=== PATIENT | male | born 1935 | race Caucasian/White ===

== ENCOUNTER 2016-08-15 15:00 | Emergency (ER) | payer MEDICARE, BC ==
--- NOTE | 2016-08-15 15:42 | EDM.PDOC ---
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 Onset: Today, Other ( as he was trying to work he noted that his left side was not working well. ) Duration: Hour(s):, Getting Worse, Other (pt had no difficulty with his speech or facial deviation. ) Location: Reports: Head Associated Symptoms: Reports: Weakness, Other (pt has weakness in the left arm and left leg. ) Denies Pain Score (Numeric/FACES): 0 - Related Data Allergies Allergy/AdvReac Type Severity Reaction Status Date / Time No Known Allergies Allergy Verified 08/15/16 15:05 Home Meds: Home Meds Hydrochlorothiazide 25 mg PO DAILY 08/15/16 [History] Metoprolol Succinate 1 tab PO DAILY 08/15/16 [History] Simvastatin [Zocor] 20 mg PO DAILY 08/15/16 [History] Past Medical History Cardiovascular History: Reports: High Cholesterol, Hypertension, [place], Stents Genitourinary History: Reports: Other (See Below) Other Genitourinary History: prostate infection - Infectious Disease History Infectious Disease History: Reports: Chicken Pox, Measles, Mumps - Past Surgical History HEENT Surgical History: Reports: Cataract Surgery Cardiovascular Surgical History: Reports: Coronary Artery Stent GI Surgical History: Reports: Colonoscopy Social & Family History - Tobacco Use Smoking Status *Q: Former Smoker Years of Tobacco use: 30 Packs/Tins Daily: 0.5 Used Tobacco, but Quit: Yes Month Tobacco Last Used: August Second Hand Smoke Exposure: No - Caffeine Use Caffeine Use: Reports: Coffee, Soda - Recreational Drug Use Recreational Drug Use: No ED ROS GENERAL - Review of Systems Review Of Systems: See Below Constitutional: Reports: No Symptoms HEENT: Reports: No Symptoms Respiratory: Reports: No Symptoms Cardiovascular: Reports: No Symptoms Endocrine: Reports: No Symptoms GI/Abdominal: Reports: No Symptoms : Reports: No Symptoms Musculoskeletal: Reports: Other ( weakness on the left leg and arm. ) Skin: Reports: No Symptoms ED EXAM, NEURO - Physical Exam Exam: See Below Text/Narrative:: pt arrived with weakness in his left arm and his left leg. This started early this am. Exam Limited By: No Limitations General Appearance: Alert, Mild Distress, Other (pupils are equal and reactive. ) Ears: Normal TMs Nose: Normal Inspection Throat/Mouth: Normal Inspection Head Exam: Atraumatic Neck: Other ( no evidence of sig carotid bruits) Respiratory/Chest: No Respiratory Distress Cardiovascular: Regular Rate, Rhythm GI/Abdominal: Soft, Non-Tender (Male) Exam: Deferred Rectal (Males) Exam: Deferred Neurological: Alert, Oriented x 3 Back Exam: Normal Inspection Extremities: Other (pt clearly has weakness in the left arm and left leg. ) Psychiatric: Normal Affect Course - Vital Signs Last Recorded V/S: Last Vital Signs Temp 37.2 C 08/15/16 15:18 Pulse 83 08/15/16 16:31 Resp 18 08/15/16 16:31 BP 139/94 H 08/15/16 16:31 Pulse Ox 94 L 08/15/16 16:31 - Orders/Labs/Meds Orders: Active Orders 24 hr Category Date Time Status EKG Documentation Completion [RC] ASDIRECTED Care 08/15/16 15:23 Active Chest 1V Frontal [CR] Stat Exams 08/15/16 15:34 Taken Head wo Cont [CT] Stat Exams 08/15/16 15:33 Taken CULTURE URINE [RM] Stat Lab 08/15/16 16:36 Uncollected Sodium Chloride 0.9% [Saline Flush] Med 08/15/16 16:31 Ordered 10 ml FLUSH ASDIRECTED PRN Saline Lock Insert [OM.PC] Routine Oth 08/15/16 16:31 Ordered EKG 12 Lead [EK] Routine Ther 08/15/16 15:23 Ordered Medication Orders Sodium Chloride (Saline Flush) 10 ml FLUSH ASDIRECTED PRN PRN Reason: Keep Vein Open Labs: Laboratory Tests 08/15/16 08/15/16 08/15/16 Range/Units 15:30 15:30 15:30 WBC 11.3 H (4.5-11.0) K/uL RBC 5.74 (4.30-5.90) M/uL Hgb 16.1 H (12.0-15.0) g/dL Hct 45.8 (40.0-54.0) % MCV 80 (80-98) fL MCH 28 (27-31) pg MCHC 35 (32-36) % Plt Count 239 (150-400) K/uL Neut % (Auto) 74 H (36-66) % Lymph % (Auto) 16 L (24-44) % [place] % (Auto) 8 H (2-6) % Eos % (Auto) 1 L (2-4) % Baso % (Auto) 0 (0-1) % Sodium 143 (140-148) mmol/L Potassium 3.2 L (3.6-5.2) mmol/L Chloride 104 (100-108) mmol/L Carbon Dioxide 26 (21-32) mmol/L Anion Gap 16.2 H (5.0-14.0) mmol/L BUN 23 H (7-18) mg/dL Creatinine 1.1 (0.8-1.3) mg/dL Est Cr Clr Drug Dosing 48.41 mL/min Estimated GFR (MDRD) > 60 (>60) Glucose 119 H (74-106) mg/dL Calcium 8.8 (8.5-10.1) mg/dL Total Bilirubin 0.6 (0.2-1.0) mg/dL AST 10 L (15-37) U/L ALT 20 (12-78) U/L Alkaline Phosphatase 63 (46-116) U/L Troponin I < 0.017 (0.000-0.056) ng/mL Total Protein 8.4 H (6.4-8.2) g/dL Albumin 4.0 (3.4-5.0) g/dL Globulin 4.4 H (2.3-3.5) g/dL Albumin/Globulin Ratio 0.9 L (1.2-2.2) Urine Color Urine Appearance Urine pH (4.5-8.0) Ur Specific [place] (1.008-1.030) Urine Protein (NEGATIVE) mg/dL Urine Glucose (UA) (NEGATIVE) mg/dL Urine Ketones (NEGATIVE) mg/dL Urine Occult Blood (NEGATIVE) Urine Nitrite (NEGAITVE) Urine Bilirubin (NEGATIVE) Urine Urobilinogen (NORMAL) mg/dL Ur Leukocyte Esterase (NEGATIVE) Urine RBC (0-5) Urine WBC (0-5) Ur Epithelial Cells Amorphous Sediment Urine Bacteria Urine Mucus 08/15/16 Range/Units 15:47 WBC (4.5-11.0) K/uL RBC (4.30-5.90) M/uL Hgb (12.0-15.0) g/dL Hct (40.0-54.0) % MCV (80-98) fL MCH (27-31) pg MCHC (32-36) % Plt Count (150-400) K/uL Neut % (Auto) (36-66) % Lymph % (Auto) (24-44) % [place] % (Auto) (2-6) % Eos % (Auto) (2-4) % Baso % (Auto) (0-1) % Sodium (140-148) mmol/L Potassium (3.6-5.2) mmol/L Chloride (100-108) mmol/L Carbon Dioxide (21-32) mmol/L Anion Gap (5.0-14.0) mmol/L BUN (7-18) mg/dL Creatinine (0.8-1.3) mg/dL Est Cr Clr Drug Dosing mL/min Estimated GFR (MDRD) (>60) Glucose (74-106) mg/dL Calcium (8.5-10.1) mg/dL Total Bilirubin (0.2-1.0) mg/dL AST (15-37) U/L ALT (12-78) U/L Alkaline Phosphatase (46-116) U/L Troponin I (0.000-0.056) ng/mL Total Protein (6.4-8.2) g/dL Albumin (3.4-5.0) g/dL Globulin (2.3-3.5) g/dL Albumin/Globulin Ratio (1.2-2.2) Urine Color Yellow Urine Appearance Turbid Urine pH 6.5 (4.5-8.0) Ur Specific [place] 1.015 (1.008-1.030) Urine Protein 100 H (NEGATIVE) mg/dL Urine Glucose (UA) Normal (NEGATIVE) mg/dL Urine Ketones 15 H (NEGATIVE) mg/dL Urine Occult Blood Large (NEGATIVE) Urine Nitrite Negative (NEGAITVE) Urine Bilirubin Negative (NEGATIVE) Urine Urobilinogen Normal (NORMAL) mg/dL Ur Leukocyte Esterase Large (NEGATIVE) Urine RBC 75-100 H (0-5) Urine WBC 75-100 H (0-5) Ur Epithelial Cells Rare Amorphous Sediment Not seen Urine Bacteria Many Urine Mucus Not seen Meds: Medications Generic Name Dose Route Start Last Admin Trade Name Kerline PRN Reason Stop Dose Admin Sodium Chloride 10 ml 08/15/16 16:31 Saline Flush FLUSH ASDIRECTED PRN Keep Vein Open - Re-Assessments/Exams Free Text/Narrative Re-Assessment/Exam: 08/15/16 16:46 urine looks infected. He does not have a fever. His wbc is 11,000. His ekg looks good. The cat scan of the head shows no acute findings. Departure - Departure Time of Disposition: 16:48 Disposition: Home, Self-Care 01 Condition: fair Clinical Impression: Embolic cerebral infarction, UTI (urinary tract infection) - Discharge Information Forms: ED Department Discharge Care Plan Goals: transfer by ambulance to [facility]. - My Orders Last 24 Hours: My Active Orders 08/15/16 15:23 EKG Documentation Completion [RC] ASDIRECTED EKG 12 Lead [EK] Routine 08/15/16 15:33 Head wo Cont [CT] Stat 08/15/16 15:34 Chest 1V Frontal [CR] Stat 08/15/16 16:31 Sodium Chloride 0.9% [Saline Flush] 10 ml FLUSH ASDIRECTED PRN Saline Lock Insert [OM.PC] Routine 08/15/16 16:36 CULTURE URINE [RM] Stat - Assessment/Plan Last 24 Hours: My Active Orders 08/15/16 15:23 EKG Documentation Completion [RC] ASDIRECTED EKG 12 Lead [EK] Routine 08/15/16 15:33 Head wo Cont [CT] Stat 08/15/16 15:34 Chest 1V Frontal [CR] Stat 08/15/16 16:31 Sodium Chloride 0.9% [Saline Flush] 10 ml FLUSH ASDIRECTED PRN Saline Lock Insert [OM.PC] Routine 08/15/16 16:36 CULTURE URINE [RM] Stat
[2016-08-15] MEDS ORDERED: Sodium Chloride 0.9% 10 ML Syringe FLUSH PRN (16:31)
[2016-08-15] MEDS ORDERED: Levofloxacin/Dextrose 5%-Water 500 MG in Premix Bag 1 BAG IV ONE (16:41)
[2016-08-15 16:59] VITALS: BP 121/79
--- NOTE | 2016-08-16 08:08 | CR ---
Chest 1V Frontal HISTORY: No Clinical Info FINDINGS: Heart size within normal limits. Pulmonary vasculature within normal limits. No evidence f or focal consolidation or cardiopulmonary process. IMPRESSION: No radiographic evidence for acute cardiopulmonary process.
== END 2016-08-15 17:50 ==
LOC: JP.ED 15:00
DX: I63.40 Cerebral infarction due to embolism of unspecified cerebral artery (principal); N39.0 Urinary tract infection, site not specified; I25.2 Old myocardial infarction; I10 Essential (primary) hypertension; E78.00 Pure hypercholesterolemia, unspecified; Z95.5 Presence of coronary angioplasty implant and graft; Z98.49 Cataract extraction status, unspecified eye; Z87.891 Personal history of nicotine dependence
CPT/HCPCS: 36415; 70450; 71010; 80053; 81001; 84484; 85025; 87086; 93005; 96365; 99285; J1956; 93010

== ENCOUNTER 2019-12-29 09:14 | Emergency (ER) | payer MEDICARE, BC ==
[2019-12-29 09:35] VITALS: BP 134/79; PULSE 93
--- NOTE | 2019-12-29 09:55 | EDM.PDOC ---
ED HPI GENERAL MEDICAL PROBLEM - General Chief Complaint: General Stated Complaint: general weakness Time Seen by Provider: 12/29/19 09:34 Source of Information: Reports: Patient, Family, RN Notes Reviewed History Limitations: Reports: No Limitations - History of Present Illness INITIAL COMMENTS - FREE TEXT/NARRATIVE: 84-year-old gentleman presents emergency department today complaint of difficulty with urination, he does have a history of prostatitis which he has had a couple of times he states he feels like he has to urinate but only gets a few dribbles out BladderScan by nursing staff reveals approximately 200 cc in his urine he has not had any fevers he has a known prostate enlargement - Related Data Allergies Allergy/AdvReac Type Severity Reaction Status Date / Time No Known Allergies Allergy Verified 08/15/16 15:05 Home Meds: Home Meds Hydrochlorothiazide 25 mg PO DAILY 08/15/16 [History] Metoprolol Succinate 100 mg PO DAILY 08/15/16 [History] Aspirin 325 mg PO DAILY 12/29/19 [History] Clopidogrel [Plavix] 75 mg PO DAILY 12/29/19 [History] Sulfamethoxazole/Trimethoprim [Bactrim Ds Tablet] 1 each PO BID #56 tablet 12/29/19 [Rx] Tamsulosin [Tamsulosin 24 Hr] 0.4 mg PO DAILY #30 cap.er 12/29/19 [Rx] atorvaSTATin [Lipitor] 40 mg PO DAILY 12/29/19 [History] Past Medical History Cardiovascular History: Reports: CAD, High Cholesterol, Hypertension, [place], Stents Genitourinary History: Reports: BPH, Other (See Below) Other Genitourinary History: Recurrent prostatitis - Infectious Disease History Infectious Disease History: Reports: Chicken Pox, Measles, Mumps - Past Surgical History HEENT Surgical History: Reports: Cataract Surgery Cardiovascular Surgical History: Reports: Coronary Artery Stent GI Surgical History: Reports: Colonoscopy, Hernia, Abdominal Social & Family History - Tobacco Use Smoking Status *Q: Never Smoker - Caffeine Use Caffeine Use: Reports: Coffee - Recreational Drug Use Recreational Drug Use: No ED ROS GENERAL - Review of Systems Review Of Systems: See Below Constitutional: Reports: No Symptoms Respiratory: Reports: No Symptoms Cardiovascular: Reports: No Symptoms GI/Abdominal: Reports: No Symptoms : Reports: Urinary Retention, Other (Fullness in his perineal area) ED EXAM, GENERAL - Physical Exam Exam: See Below Exam Limited By: No Limitations General Appearance: Alert, WD/WN, No Apparent Distress Respiratory/Chest: No Respiratory Distress Rectal (Males) Exam: BPH, Tenderness. No: Prostate Normal Course - Vital Signs Last Recorded V/S: Last Vital Signs Temp 96.8 F L 12/29/19 09:47 Pulse 93 12/29/19 09:47 Resp 20 12/29/19 09:47 BP 134/79 12/29/19 09:47 Pulse Ox 92 L 12/29/19 09:47 Departure - Departure Time of Disposition: 09:56 Disposition: Home, Self-Care 01 Condition: Fair Clinical Impression: Prostatitis Qualifiers: Prostatitis type: acute Qualified Code(s): N41.0 - Acute prostatitis - Discharge Information Instructions: Prostatitis, [id number] Referrals: Uli Gonzalez MD [Primary Care Provider] - Additional Instructions: Take full course of antibiotics this will be 28 days long, try the Flomax once a day at night to see if this helps with your urination and increasing the flow, follow-up with your primary care in the next 2 to 3 weeks for reevaluation return to the emergency department if not better Sepsis Event Note (ED) - Evaluation Sepsis Screening Result: No Definite Risk - Focused Exam Vital Signs: Vital Signs Temp Pulse Resp BP Pulse Ox 12/29/19 09:47 96.8 F L 93 20 134/79 92 L 12/29/19 09:27 96.8 F L 93 20 134/79 92 L - Assessment/Plan Plan: Assessment Acuity = acute Site and laterality = prostatitis complicated gentleman with enlarged prostate Etiology = probably secondary to infection bacterial cause Manifestations = urinary retention Location of injury = Home Lab values = urinalysis and culture are pending Plan Elected to treat empirically Bactrim DS 1 tab p.o. twice daily x20 days also Flomax 1 tablet at night for 30 days follow-up primary care in 10 to 15 days if not better This note was dictated using [employer] voice recognition software please call with any questions on syntax or grammar.
== END 2019-12-29 10:23 | disposition home or self-care (01) ==
LOC: JP.ED 09:14
DX: N41.0 Acute prostatitis (principal); I10 Essential (primary) hypertension; I25.2 Old myocardial infarction; I25.10 Atherosclerotic heart disease of native coronary artery without angina pectoris; E78.00 Pure hypercholesterolemia, unspecified; N40.0 Benign prostatic hyperplasia without lower urinary tract symptoms; Z95.5 Presence of coronary angioplasty implant and graft; Z79.82 Long term (current) use of aspirin; Z79.02 Long term (current) use of antithrombotics/antiplatelets; Z79.899 Other long term (current) drug therapy
CPT/HCPCS: 81001; 87086; 99283

== ENCOUNTER 2020-01-06 15:08 | Emergency (ER) | payer MEDICARE, BC ==
--- NOTE | 2020-01-06 17:22 | EDM.PDOC ---
ED HPI GENERAL MEDICAL PROBLEM - General Chief Complaint: General Stated Complaint: PAIN IN BOTH FEET Time Seen by Provider: 01/06/20 17:15 Source of Information: Reports: Patient, Family, Old Records, RN, RN Notes Reviewed History Limitations: Reports: No Limitations - History of Present Illness INITIAL COMMENTS - FREE TEXT/NARRATIVE: Pt here again with son for continuance of burning and stabbing pain in soles of BL feet. 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 Old records indicate A1C 6.8. Topical pain patches were given to try to see if that helps. Did ot. Pt is miserable and pain is relentless. Kidney function is elevated so alternative medications will be explored. Duration: Chronic, Constant, Getting Worse Location: Reports: Lower Extremity, Left, Lower Extremity, Right Quality: Reports: Sharp Feet Pain Score (Numeric/FACES): 8 - Related Data Allergies Allergy/AdvReac Type Severity Reaction Status Date / Time No Known Allergies Allergy Verified 01/06/20 16:38 Home Meds: Home Meds Hydrochlorothiazide 25 mg PO DAILY 08/15/16 [History] Metoprolol Succinate 100 mg PO DAILY 08/15/16 [History] Aspirin 325 mg PO DAILY 12/29/19 [History] Clopidogrel [Plavix] 75 mg PO DAILY 12/29/19 [History] Sulfamethoxazole/Trimethoprim [Bactrim Ds Tablet] 1 each PO BID #56 tablet 12/29/19 [Rx] Tamsulosin [Tamsulosin 24 Hr] 0.4 mg PO DAILY #30 cap.er 12/29/19 [Rx] atorvaSTATin [Lipitor] 40 mg PO DAILY 12/29/19 [History] Past Medical History Cardiovascular History: Reports: CAD, High Cholesterol, Hypertension, [place], Stents Genitourinary History: Reports: BPH, Other (See Below) Other Genitourinary History: Recurrent prostatitis - Infectious Disease History Infectious Disease History: Reports: Chicken Pox, Measles, Mumps - Past Surgical History HEENT Surgical History: Reports: Cataract Surgery Cardiovascular Surgical History: Reports: Coronary Artery Stent GI Surgical History: Reports: Colonoscopy, Hernia, Abdominal Social & Family History - Tobacco Use Smoking Status *Q: Never Smoker - Caffeine Use Caffeine Use: Reports: None - Recreational Drug Use Recreational Drug Use: No ED ROS GENERAL - Review of Systems Review Of Systems: See Below Constitutional: Reports: No Symptoms HEENT: Reports: No Symptoms Respiratory: Reports: No Symptoms Cardiovascular: Reports: No Symptoms Endocrine: Reports: No Symptoms GI/Abdominal: Reports: No Symptoms : Reports: Frequency, Urgency (On Bactrim DS ) Musculoskeletal: Reports: Other (BL soles of feet neuropathy) Skin: Reports: No Symptoms Neurological: Reports: No Symptoms Psychiatric: Reports: No Symptoms Hematologic/Lymphatic: Reports: No Symptoms Immunologic: Reports: No Symptoms ED EXAM, GENERAL - Physical Exam Exam: See Below Exam Limited By: No Limitations General Appearance: Alert, WD/WN, Mild Distress Head: Normocephalic Respiratory/Chest: Lungs Clear, Normal Breath Sounds Cardiovascular: Regular Rate, Rhythm (Male) Exam: Deferred Rectal (Males) Exam: Deferred Extremities: Other (Stabbing/burning pain BL soles of feet) Psychiatric: Normal Affect, Normal Mood Skin Exam: Warm, Dry, Intact, Normal Color, No Rash Course - Vital Signs Last Recorded V/S: Last Vital Signs Temp 36.9 C 01/06/20 16:37 Pulse 76 01/06/20 17:22 Resp 16 01/06/20 16:37 BP 110/66 01/06/20 17:22 Pulse Ox 95 01/06/20 16:37 - Orders/Labs/Meds Meds: Medications Discontinued Medications Generic Name Dose Route Start Last Admin Trade Name Kerline PRN Reason Stop Dose Admin Hydromorphone HCl 0.5 mg 01/06/20 17:23 Dilaudid IM 01/06/20 17:24 ONETIME ONE Departure - Departure Time of Disposition: 17:38 Disposition: Home, Self-Care 01 Condition: Good Clinical Impression: Neuropathy - Discharge Information *PRESCRIPTION DRUG MONITORING PROGRAM REVIEWED*: Not Applicable *COPY OF PRESCRIPTION DRUG MONITORING REPORT IN PATIENT JET: Not Applicable Instructions: Neuropathic Pain, Peripheral Neuropathy Referrals: Uli Gonzalez MD [Primary Care Provider] - Forms: ED Department Discharge Additional Instructions: Please take the new medication as prescribed. See your doctor in 7-10 days to follow up regarding continuing the Gabapentin or increasing the dose. Should your pain continue or increase, please come back to see us in the ER or call your provider for follow up. Sepsis Event Note (ED) - Evaluation Sepsis Screening Result: No Definite Risk - Focused Exam Vital Signs: Vital Signs Temp Pulse Resp BP Pulse Ox 01/06/20 17:22 76 110/66 01/06/20 16:37 36.9 C 80 16 130/86 95 01/06/20 16:26 36.9 C 80 16 130/86 95 - Problem List Review Problem List Initiated/Reviewed/Updated: Yes - Assessment/Plan Plan: Please take the new medication as prescribed. See your doctor in 7-10 days to follow up regarding continuing the Gabapentin or increasing the dose. Should your pain continue or increase, please come back to see us in the ER or call your provider for follow up.
[2020-01-06 17:23] VITALS: BP 110/66; PULSE 76
[2020-01-06] MEDS ORDERED: HYDROmorphone 0.5 MG/0.5 ML Syringe IM ONE (17:23)
== END 2020-01-06 18:13 | disposition home or self-care (01) ==
LOC: JP.ED 15:08
DX: G62.9 Polyneuropathy, unspecified (principal); I25.10 Atherosclerotic heart disease of native coronary artery without angina pectoris; E78.00 Pure hypercholesterolemia, unspecified; I10 Essential (primary) hypertension; I25.2 Old myocardial infarction; Z95.5 Presence of coronary angioplasty implant and graft; N40.0 Benign prostatic hyperplasia without lower urinary tract symptoms; Z79.02 Long term (current) use of antithrombotics/antiplatelets; Z79.899 Other long term (current) drug therapy; Z79.82 Long term (current) use of aspirin
CPT/HCPCS: 96372; 99283; J1170

== ENCOUNTER 2021-03-08 06:10 | Emergency (ER) | payer MEDICARE, BC ==
[2021-03-08] MEDS ORDERED: Sodium Chloride 0.9% 10 ML Syringe FLUSH PRN ×2 (06:14)
[2021-03-08] MEDS ORDERED: Aspirin 81 MG Tab.Chew PO ONE (06:16)
[2021-03-08 06:17] VITALS: BP 118/65; PULSE 95
--- NOTE | 2021-03-08 06:22 | EDM.PDOC ---
<OfficerArden - Last Filed: 03/08/21 06:34> ED HPI GENERAL MEDICAL PROBLEM - General Stated Complaint: [facility] Time Seen by Provider: 03/08/21 06:13 Source of Information: Reports: Patient, RN Notes Reviewed History Limitations: Reports: No Limitations - History of Present Illness INITIAL COMMENTS - FREE TEXT/NARRATIVE: 85-year-old gentleman presents emergency department with a complaint of right leg weakness, ambulance crew arrived found he could not move his right leg he could stand on his left and drag his right leg however by the time he got to the cot in the ambulance all his symptoms had resolved. He does have a history of CVA in the past, he denies any headache nausea vomiting shortness of breath or chest pain - Related Data Allergies Allergy/AdvReac Type Severity Reaction Status Date / Time No Known Allergies Allergy Verified 03/08/21 06:19 Home Meds: Home Meds Hydrochlorothiazide 25 mg PO DAILY 08/15/16 [History] Metoprolol Succinate 100 mg PO DAILY 08/15/16 [History] Aspirin 325 mg PO DAILY 12/29/19 [History] Clopidogrel [Plavix] 75 mg PO DAILY 12/29/19 [History] Sulfamethoxazole/Trimethoprim [Bactrim Ds Tablet] 1 each PO BID #56 tablet 12/29/19 [Rx] Tamsulosin [Tamsulosin 24 Hr] 0.4 mg PO DAILY #30 cap.er 12/29/19 [Rx] atorvaSTATin [Lipitor] 40 mg PO DAILY 12/29/19 [History] Past Medical History Cardiovascular History: Reports: CAD, High Cholesterol, Hypertension, [place], Stents Genitourinary History: Reports: BPH, Other (See Below) Other Genitourinary History: Recurrent prostatitis Neurological History: Reports: CVA (No deficits) - Infectious Disease History Infectious Disease History: Reports: Chicken Pox, Measles, Mumps - Past Surgical History HEENT Surgical History: Reports: Cataract Surgery Cardiovascular Surgical History: Reports: Coronary Artery Stent GI Surgical History: Reports: Colonoscopy, Hernia, Abdominal Social & Family History - Caffeine Use Caffeine Use: Reports: None ED ROS GENERAL - Review of Systems Review Of Systems: See Below Constitutional: Reports: No Symptoms HEENT: Reports: No Symptoms Respiratory: Reports: No Symptoms Cardiovascular: Reports: No Symptoms GI/Abdominal: Reports: No Symptoms Neurological: Reports: Difficulty Walking, Weakness ED EXAM, NEURO - Physical Exam Exam: See Below Exam Limited By: No Limitations General Appearance: Alert, WD/WN, No Apparent Distress Eye Exam: Bilateral Eye: Normal Inspection, PERRL Respiratory/Chest: No Respiratory Distress, Lungs Clear, Normal Breath Sounds, No Accessory Muscle Use, Chest Non-Tender Cardiovascular: Regular Rate, Rhythm, No Murmur GI/Abdominal: Soft, Non-Tender Neurological: Alert, Normal Mood/Affect, Normal Dorsiflexion, CN II-XII Intact, No Motor/Sensory Deficits, Oriented x 3 #1 Interpretation EKG Date: 03/08/21 Time: 06:35 Rhythm: NSR [place]: Normal P-Wave: Present QRS: Normal ST-T: Normal QT: Normal Departure - Departure Disposition: Home, Self-Care 01 Clinical Impression: TIA (transient ischemic attack) Leg weakness Qualifiers: Laterality: right Qualified Code(s): R29.898 - Other symptoms and signs involving the musculoskeletal system - Discharge Information Instructions: Transient Ischemic Attack, [id number] Referrals: PCP,Unknown [Primary Care Provider] - Forms: ED Department Discharge Care Plan Goals: Continue your current medications, activity as tolerated and return anytime if symptoms recur and are persistent or you develop other concerns. <Hamilton Rodriguez - Last Filed: 03/08/21 13:17> ED HPI GENERAL MEDICAL PROBLEM - History of Present Illness INITIAL COMMENTS - FREE TEXT/NARRATIVE: Letter Course - Vital Signs Last Recorded V/S: Last Vital Signs Temp 99.0 F 03/08/21 06:16 Pulse 95 03/08/21 06:16 Resp 32 H 03/08/21 06:16 BP 118/65 03/08/21 06:16 Pulse Ox 91 L 03/08/21 06:16 - Orders/Labs/Meds Orders: Active Orders 24 hr Category Date Time Status Peripheral IV Insertion Adult [OM.PC] Urgent Oth 03/08/21 06:14 Ordered EKG 12 Lead [EK] Stat Ther 03/08/21 06:14 Ordered Labs: Laboratory Tests 03/08/21 03/08/21 03/08/21 Range/Units 06:15 06:15 06:15 WBC 14.6 H (4.5-11.0) K/uL RBC 5.13 (4.30-5.90) M/uL Hgb 13.8 D (12.0-15.0) g/dL Hct 40.3 (40.0-54.0) % MCV 79 L (80-98) fL MCH 27 (27-31) pg MCHC 34 (32-36) % Plt Count 199 (150-400) K/uL Neut % (Auto) 82.4 H (36-66) % Lymph % (Auto) 7.6 L (24-44) % [place] % (Auto) 9.8 H (2-6) % Eos % (Auto) 0.1 L (2-4) % Baso % (Auto) 0.1 (0-1) % Sodium 134 L (140-148) mmol/L Potassium 3.0 L (3.6-5.2) mmol/L Chloride 97 L (100-108) mmol/L Carbon Dioxide 25 (21-32) mmol/L Anion Gap 15.0 H (5.0-14.0) mmol/L BUN 27 H (7-18) mg/dL Creatinine 1.2 (0.8-1.3) mg/dL Est Cr Clr Drug Dosing 41.31 mL/min Estimated GFR (MDRD) 57 L (>60) Glucose 198 H (74-106) mg/dL Lactic Acid 3.5 H (0.4-2.0) mmol/L Calcium 9.4 (8.5-10.1) mg/dL Total Bilirubin 1.2 H D (0.2-1.0) mg/dL AST 8 L (15-37) U/L ALT 19 (12-78) U/L Alkaline Phosphatase 77 (46-116) U/L Troponin I High Sens (<=60.3) pg/mL Total Protein 7.6 (6.4-8.2) g/dL Albumin 3.2 L (3.4-5.0) g/dL Globulin 4.4 H (2.3-3.5) g/dL Albumin/Globulin Ratio 0.7 L (1.2-2.2) 03/08/21 Range/Units 06:15 WBC (4.5-11.0) K/uL RBC (4.30-5.90) M/uL Hgb (12.0-15.0) g/dL Hct (40.0-54.0) % MCV (80-98) fL MCH (27-31) pg MCHC (32-36) % Plt Count (150-400) K/uL Neut % (Auto) (36-66) % Lymph % (Auto) (24-44) % [place] % (Auto) (2-6) % Eos % (Auto) (2-4) % Baso % (Auto) (0-1) % Sodium (140-148) mmol/L Potassium (3.6-5.2) mmol/L Chloride (100-108) mmol/L Carbon Dioxide (21-32) mmol/L Anion Gap (5.0-14.0) mmol/L BUN (7-18) mg/dL Creatinine (0.8-1.3) mg/dL Est Cr Clr Drug Dosing mL/min Estimated GFR (MDRD) (>60) Glucose (74-106) mg/dL Lactic Acid (0.4-2.0) mmol/L Calcium (8.5-10.1) mg/dL Total Bilirubin (0.2-1.0) mg/dL AST (15-37) U/L ALT (12-78) U/L Alkaline Phosphatase (46-116) U/L Troponin I High Sens 5.1 (<=60.3) pg/mL Total Protein (6.4-8.2) g/dL Albumin (3.4-5.0) g/dL Globulin (2.3-3.5) g/dL Albumin/Globulin Ratio (1.2-2.2) Meds: Medications Discontinued Medications Generic Name Dose Route Start Last Admin Trade Name Freq PRN Reason Stop Dose Admin Aspirin 324 mg 03/08/21 06:16 03/08/21 06:27 Aspirin 81 Mg Tab.Chew PO 03/08/21 06:17 324 mg ONETIME ONE Administration Sodium Chloride 100 mls @ 3 mls/sec 03/08/21 06:30 03/08/21 07:10 Normal Saline IV 4 mls/sec ASDIRECTED JOSE Administration Iopamidol 100 ml 03/08/21 06:30 03/08/21 07:10 Iopamidol 755 Mg/Ml 100 Ml Bottle IV 100 ml . DIRECTED JOSE Administration Sodium Chloride 10 ml 03/08/21 06:14 Sodium Chloride 0.9% 10 Ml Syringe FLUSH ASDIRECTED PRN Keep Vein Open Sodium Chloride 10 ml 03/08/21 06:14 Sodium Chloride 0.9% 10 Ml Syringe FLUSH ASDIRECTED PRN Keep Vein Open Sodium Chloride 10 ml 03/08/21 06:26 03/08/21 07:09 Sodium Chloride 0.9% 10 Ml Sdv FLUSH 03/08/21 06:27 10 ml ONETIME ONE Administration - Re-Assessments/Exams Free Text/Narrative Re-Assessment/Exam: 03/08/21 13:16 Care turned over from Officer regarding a right leg weakness that resolved fairly rapidly last night prior to coming in. A CT angiogram is pending, this returned showing no acute occlusion. The patient was ambulated in the room by his son and he felt he was at baseline. He is not a good candidate for an aggressive work-up, patient was allowed to go home and will return if symptoms recur and are persistent. Departure - Departure Time of Disposition: 08:04 Sepsis Event Note (ED) - Focused Exam Vital Signs: Vital Signs Temp Pulse Resp BP Pulse Ox 03/08/21 06:16 99.0 F 95 32 H 118/65 91 L
[2021-03-08] MEDS ORDERED: Sodium Chloride 0.9% 10 ML SDV FLUSH ONE (06:26)
[2021-03-08] MEDS ORDERED: Sodium Chloride 0.9% 100 ML IV SCH (06:30)
[2021-03-08] MEDS ORDERED: Iopamidol 755 Mg/ML 100 ML Bottle IV SCH (06:30)
--- NOTE | 2021-03-08 06:46 | CRLCT ---
For Patients: As a result of the Century Cures Act, medical imaging exams and procedure reports are released immediately into your electronic medical record. You may view this report before your referring provider. If you have questions, please contact your health care provider. Indication: Right leg weakness Technique: Volumetric multidetector CT images of the head were obtained without the administration of low osmolar intravenous contrast. Comparison: CT head August 15, 2016 Findings: There is no intra-axial or extra-axial fluid collection. There is no mass effect or midline shift. There is global cortical atrophy with sulcal widening and minimal ex vacuo dilatation of lateral ventricles. There is moderate chronic small-vessel disease changes of the subcortical and periventricular white matter with otherwise preserved lopez-white differentiation. There is trace encephalomalacia of right frontal vertex. The orbits and their contents are grossly within normal limits. The bony calvarium is grossly intact. The paranasal sinuses are clear. The mastoid air cells are well aerated. Impression: 1. Age-related changes of the brain without acute intracranial abnormality. Findings were faxed to and confirmed received by [facility] at 6:43 a.m. March 08, [address] note that all CT scans at this facility use dose modulation, iterative reconstruction, and/or weight-based dosing when appropriate to reduce radiation dose to as low as reasonably achievable. Dictated by Brando Bee MD @ 03/08/2021 6:44:02 AM (Electronically Signed)
--- NOTE | 2021-03-08 07:46 | CRLCT ---
For Patients: As a result of the Century Cures Act, medical imaging exams and procedure reports are released immediately into your electronic medical record. You may view this report before your referring provider. If you have questions, please contact your health care provider. DATE: 03/08/2021 CLINICAL HISTORY: Patient with right leg weakness. TECHNIQUE: Standard helical CT image acquisition through the intracranial circulation following intravenous administration of contrast material with bolus tracking. Multiplanar reconstructed images were performed and interpreted. COMPARISON: CT same day FINDINGS: There is no cerebral aneurysm or large vessel occlusion. The right internal carotid artery is normal. The right middle cerebral artery and its branches are normal. The right anterior cerebral artery and its branches are normal. The left internal carotid artery is normal. The left middle cerebral artery and its branches are normal. The left anterior cerebral artery and its branches are normal. The anterior communicating artery is well visualized and appears normal. The right vertebral artery and PICA are normal. The left vertebral artery and PICA are normal. The left vertebral artery is dominant. The basilar artery is patent and appears normal. The right posterior cerebral artery is normal. The left posterior cerebral artery is normal. IMPRESSION: Normal CT angiogram of the head without intracranial aneurysm or other neurovascular abnormality. Please note that all CT scans at this facility use dose modulation, iterative reconstruction, and/or weight-based dosing when appropriate to reduce radiation dose to as low as reasonably achievable. Dictated by Sam Garcia MD @ 03/08/2021 10:26:06 AM (Electronically Signed)
--- NOTE | 2021-03-08 07:49 | CRLCT ---
For Patients: As a result of the Century Cures Act, medical imaging exams and procedure reports are released immediately into your electronic medical record. You may view this report before your referring provider. If you have questions, please contact your health care provider. DATE: 03/08/2021 CLINICAL HISTORY: Patient with right leg weakness. TECHNIQUE: Standard helical CT image acquisition of the neck up to the skull base after bolus intravenous contrast enhancement. Multiplanar reconstructed images performed on a separate workstation. COMPARISON: None. FINDINGS: The origins of the great vessels from the aortic arch are patent. The origin of the right vertebral artery is patent. The origin of the left vertebral artery demonstrates mild narrowing. The common carotid arteries are patent. There is a moderate (60%) stenosis at the origin of the right internal carotid artery by NASCET criteria. This is caused by non-calcified plaque with a 1.7mm residual lumen. There is a mild (<50%) stenosis at the origin of the left internal carotid artery by NASCET criteria. This is caused by calcified plaque with a <2mm residual lumen. The rest of the cervical segments of the internal carotid arteries are patent up to the skull base. The left vertebral artery is dominant. The cervical segments of the vertebral arteries are patent up to the skull base. The visualized intracranial vasculature is unremarkable. The visualized lung apices demonstrate emphysematous changes. The thyroid gland is unremarkable. The soft tissues of the neck are unremarkable. There are degenerative changes in the cervical spine. IMPRESSION: 1. Moderate (60%) stenosis at the origin of the right internal carotid artery by NASCET criteria caused by non-calcified plaque with a 1.7mm residual lumen. 2. Mild (<50%) stenosis at the origin of the left internal carotid artery by NASCET criteria caused by calcified plaque with a <2mm residual lumen. 3. Mild left vertebral artery origin stenosis. Please note that all CT scans at this facility use dose modulation, iterative reconstruction, and/or weight-based dosing when appropriate to reduce radiation dose to as low as reasonably achievable. Dictated by Sam Garcia MD @ 03/08/2021 10:24:32 AM (Electronically Signed)
== END 2021-03-08 08:15 | disposition home or self-care (01) ==
LOC: JP.ED 06:10
DX: G45.9 Transient cerebral ischemic attack, unspecified (principal); I25.10 Atherosclerotic heart disease of native coronary artery without angina pectoris; E78.00 Pure hypercholesterolemia, unspecified; I10 Essential (primary) hypertension; I25.2 Old myocardial infarction; Z95.5 Presence of coronary angioplasty implant and graft; N40.0 Benign prostatic hyperplasia without lower urinary tract symptoms; Z79.82 Long term (current) use of aspirin; Z79.02 Long term (current) use of antithrombotics/antiplatelets; Z79.899 Other long term (current) drug therapy
CPT/HCPCS: 36415; 70450; 70496; 70498; 80053; 83605; 84484; 85025; 93005; 99285; A9270; Q9967

== ENCOUNTER 2021-09-11 11:16 | Inpatient (IN) | payer MEDICARE, BC ==
[2021-09-11] MEDS ORDERED: Sodium Chloride 0.9% 10 ML Syringe FLUSH PRN (11:18)
[2021-09-11] MEDS ORDERED: Lactated Ringers 500 ML IV ONE (11:18)
[2021-09-11] MEDS ORDERED: Iopamidol 612 MG/ML 100 ML Bottle IV ONE (11:39)
[2021-09-11] MEDS ORDERED: Sodium Chloride 0.9% 75 ML IV SCH (11:45)
[2021-09-11 11:59] LABS: ESTIMATED GFR 39 mL/min (>60); TROPONIN I HIGH SENSITIVITY 57.5 pg/mL (<=60.3)
[2021-09-11] MEDS ORDERED: Piperacillin/Tazobactam 4.5 GM in Sodium Chloride 0.9% 50 ML IV SCH (12:30)
[2021-09-11] MEDS ORDERED: Lactated Ringers 1,000 ML IV ONE (14:13)
[2021-09-11] MEDS ORDERED: Heparin Sodium 5,000 Units/ML Vial IVPUSH ONE ×2 (14:50→22:35)
[2021-09-11 15:02] LABS: CORONAVIRUS COVID-19 NAA NEGATIVE (NEGATIVE)
[2021-09-11] MEDS: Heparin Sodium/D5W 25,000 UNITS/500 ML BAG IV SCH (15:41)
[2021-09-11] MEDS ORDERED: Dextrose 5%-Lact Ringers w/KCl 1,000 ML IV SCH (16:27)
[2021-09-11] MEDS ORDERED: Ondansetron 4 MG Tab.DIS PO PRN (16:27)
[2021-09-11] MEDS ORDERED: Potassium Chloride 20 MEQ, Lidocaine 1% 2 ML in Sodium Chloride 0.9% 100 ML IV SCH (16:27)
[2021-09-11] MEDS ORDERED: Magnesium Hydroxide 400 MG/5 ML Susp 30 ML Cup PO PRN (16:27)
[2021-09-11] MEDS ORDERED: Ondansetron 4 MG/2 ML SDV IV PRN (16:27)
[2021-09-11] MEDS ORDERED: Potassium Chloride 20 MEQ in Premix Bag 1 BAG IV ONE (17:01)
[2021-09-11] MEDS ORDERED: Morphine 2 MG/ML SYRINGE ONE (17:04)
[2021-09-11] MEDS: Lidocaine 1% 5 ML VIAL SCH ×2 (17:23→22:38)
[2021-09-11] MEDS: cefTRIAXone 1 GM in Sodium Chloride 0.9% 50 ML IV SCH (20:22)
[2021-09-11] MEDS ORDERED: Lidocaine 1% 5 ML VIAL ONE (22:26)
[2021-09-11] MEDS: Heparin Sodium 5,000 Units/ML Vial ONE ×2 (22:33→23:17)
[2021-09-11] MEDS: Potassium Chloride 20 MEQ in Premix Bag 1 BAG IV ONE ×2 (22:37→22:43)
[2021-09-11] MEDS: Bacitracin Oint 1 GM U/D Packet TOP SCH (22:38)
[2021-09-11] MEDS: Morphine 2 MG/ML SYRINGE IVPUSH PRN (22:51)
[2021-09-12] MEDS: Bacitracin Oint 1 GM U/D Packet TOP SCH (08:27)
[2021-09-12] MEDS: Morphine 2 MG/ML SYRINGE IVPUSH PRN ×3 (08:28→20:22)
[2021-09-12] MEDS: Lactobacillus Rhamnosus GG (Probiotic) Cap PO SCH ×2 (08:31→20:27)
[2021-09-12] MEDS: Dextrose 5% in Water 1,000 ML IV SCH ×2 (08:34→18:16)
[2021-09-12] MEDS: Bacitracin Oint 28.35 GM Tube TOP SCH ×3 (08:37→21:47)
[2021-09-12] MEDS: Insulin Lispro 100 Unit/ML 3 ML KwikPen SUBCUT SCH ×4 (11:03→20:33)
[2021-09-12] MEDS ORDERED: Heparin Sodium 5,000 Units/ML Vial IVPUSH ONE (11:31)
[2021-09-12] MEDS ORDERED: Heparin Sodium 5,000 Units/ML Vial ONE (11:31)
[2021-09-12] MEDS: Heparin Sodium/D5W 25,000 UNITS/500 ML BAG IV SCH (13:53)
[2021-09-12] MEDS: cefTRIAXone 1 GM in Sodium Chloride 0.9% 50 ML IV SCH (20:21)
[2021-09-13] MEDS: Dextrose 5% in Water 1,000 ML IV SCH ×2 (04:46→14:37)
[2021-09-13] MEDS: Insulin Lispro 100 Unit/ML 3 ML KwikPen SUBCUT SCH ×4 (07:55→20:18)
[2021-09-13] MEDS: Lactobacillus Rhamnosus GG (Probiotic) Cap PO SCH ×2 (08:31→21:18)
[2021-09-13] MEDS: Bacitracin Oint 28.35 GM Tube TOP SCH ×2 (10:00→14:38)
[2021-09-13] MEDS: Heparin Sodium/D5W 25,000 UNITS/500 ML BAG IV SCH (11:10)
[2021-09-13] MEDS ORDERED: Levofloxacin/Dextrose 5%-Water 750 MG in Premix Bag 1 BAG IV SCH (14:00)
[2021-09-13] MEDS: Enoxaparin 60 MG/0.6 ML Syringe SUBCUT SCH (20:17)
[2021-09-13] MEDS: Morphine 2 MG/ML SYRINGE IVPUSH PRN (20:23)
[2021-09-13] MEDS: BACITRACIN TOP SCH (21:17)
[2021-09-14] MEDS: Morphine 2 MG/ML SYRINGE IVPUSH PRN ×3 (01:26→20:56)
[2021-09-14] MEDS: Insulin Lispro 100 Unit/ML 3 ML KwikPen SUBCUT SCH ×4 (07:49→20:49)
[2021-09-14] MEDS: Enoxaparin 60 MG/0.6 ML Syringe SUBCUT SCH ×2 (07:50→18:19)
[2021-09-14] MEDS: BACITRACIN TOP SCH ×3 (08:48→20:58)
[2021-09-14] MEDS: Lactobacillus Rhamnosus GG (Probiotic) Cap PO SCH ×2 (08:48→20:54)
[2021-09-14] MEDS: Dextrose 5% in Water 1,000 ML IV SCH (08:50)
[2021-09-14] MEDS: Potassium Chloride 20 MEQ, Lidocaine 1% 2 ML in Sodium Chloride 0.9% 100 ML IV SCH ×2 (10:39→12:59)
[2021-09-14] MEDS: Levofloxacin/Dextrose 5%-Water 750 MG in Premix Bag 1 BAG IV SCH (14:04)
[2021-09-15] MEDS: Dextrose 5% in Water 1,000 ML IV SCH (03:41)
[2021-09-15] MEDS: Insulin Lispro 100 Unit/ML 3 ML KwikPen SUBCUT SCH ×4 (07:12→19:58)
[2021-09-15] MEDS: Enoxaparin 60 MG/0.6 ML Syringe SUBCUT SCH ×2 (07:13→19:16)
[2021-09-15] MEDS: Morphine 2 MG/ML SYRINGE IVPUSH PRN ×3 (07:56→19:41)
[2021-09-15] MEDS: BACITRACIN TOP SCH ×3 (08:41→20:01)
[2021-09-15] MEDS: Lactobacillus Rhamnosus GG (Probiotic) Cap PO SCH ×2 (08:55→20:02)
[2021-09-15] MEDS ORDERED: Vancomycin 1 GM SDV IV SCH (12:00)
[2021-09-15] MEDS: Levofloxacin/Dextrose 5%-Water 750 MG in Premix Bag 1 BAG IV SCH (15:31)
[2021-09-16] MEDS: Morphine 2 MG/ML SYRINGE IVPUSH PRN ×2 (00:46→13:54)
[2021-09-16] MEDS: Enoxaparin 60 MG/0.6 ML Syringe SUBCUT SCH ×2 (08:20→18:03)
[2021-09-16] MEDS: Insulin Lispro 100 Unit/ML 3 ML KwikPen SUBCUT SCH ×4 (08:26→20:40)
[2021-09-16] MEDS: Lactobacillus Rhamnosus GG (Probiotic) Cap PO SCH ×2 (08:36→21:00)
[2021-09-16] MEDS: BACITRACIN TOP SCH ×3 (08:51→22:00)
[2021-09-16] MEDS: Potassium Chloride 20 MEQ, Lidocaine 1% 2 ML in Sodium Chloride 0.9% 100 ML IV SCH ×2 (10:30→12:12)
[2021-09-16] MEDS: Acetaminophen 325 MG Tab PO PRN (12:57)
[2021-09-16] MEDS: Levofloxacin/Dextrose 5%-Water 750 MG in Premix Bag 1 BAG IV SCH (13:59)
[2021-09-16] MEDS ORDERED: Furosemide 20 MG/2 ML VIAL IVPUSH ONE (14:45)
[2021-09-16] MEDS: Dextrose 5% in Water 1,000 ML IV SCH (23:04)
[2021-09-17] MEDS: Enoxaparin 60 MG/0.6 ML Syringe SUBCUT SCH ×2 (08:00→18:21)
[2021-09-17] MEDS ORDERED: Potassium Chloride Riders 40 MEQ in Premix Bag 1 BAG IV ONE (08:05)
[2021-09-17] MEDS: BACITRACIN TOP SCH ×2 (08:06→14:46)
[2021-09-17] MEDS: Insulin Lispro 100 Unit/ML 3 ML KwikPen SUBCUT SCH ×4 (08:15→22:42)
[2021-09-17] MEDS ORDERED: Potassium Chloride 20 MEQ, Lidocaine 1% 2 ML in Sodium Chloride 0.9% 100 ML IV SCH (09:30)
[2021-09-17] MEDS: Potassium Phos in 0.9 % NaCl 15 MMOL in Premix Bag 1 BAG IV SCH ×4 (09:54→13:03)
[2021-09-17] MEDS: Lactobacillus Rhamnosus GG (Probiotic) Cap PO SCH ×2 (13:02→22:43)
[2021-09-17] MEDS: Morphine 2 MG/ML SYRINGE IVPUSH PRN (13:06)
[2021-09-17] MEDS: Levofloxacin/Dextrose 5%-Water 750 MG in Premix Bag 1 BAG IV SCH (14:42)
[2021-09-17] MEDS: Dextrose 5% in Water 1,000 ML IV SCH (18:04)
[2021-09-18] MEDS: BACITRACIN TOP SCH ×4 (04:30→22:04)
[2021-09-18] MEDS: Dextrose 5% in Water 1,000 ML IV SCH (07:39)
[2021-09-18] MEDS: Insulin Lispro 100 Unit/ML 3 ML KwikPen SUBCUT SCH ×4 (07:43→22:03)
[2021-09-18] MEDS: Enoxaparin 60 MG/0.6 ML Syringe SUBCUT SCH (07:44)
[2021-09-18] MEDS: Lactobacillus Rhamnosus GG (Probiotic) Cap PO SCH ×2 (08:38→22:03)
[2021-09-18] MEDS: Levofloxacin/Dextrose 5%-Water 750 MG in Premix Bag 1 BAG IV SCH (13:30)
[2021-09-18] MEDS: Apixaban 5 MG Tab PO SCH (19:54)
[2021-09-19] MEDS: Insulin Lispro 100 Unit/ML 3 ML KwikPen SUBCUT SCH ×4 (08:25→22:11)
[2021-09-19] MEDS: BACITRACIN TOP SCH ×3 (08:26→22:12)
[2021-09-19] MEDS: Lactobacillus Rhamnosus GG (Probiotic) Cap PO SCH ×2 (08:26→20:11)
[2021-09-19] MEDS: Apixaban 5 MG Tab PO SCH ×2 (08:26→20:11)
[2021-09-19] MEDS ORDERED: Potassium Chloride 20 MEQ Tab.ER PO ONE ×2 (09:00→17:00)
[2021-09-19] MEDS: metFORMIN 500 MG Tab PO SCH (16:53)
[2021-09-20] MEDS: Acetaminophen 325 MG Tab PO PRN ×2 (03:43→14:00)
[2021-09-20] MEDS ORDERED: Clopidogrel 75 MG Tab PO SCH (09:00)
[2021-09-20] MEDS ORDERED: Tamsulosin 0.4 MG Cap.ER PO SCH (09:00)
[2021-09-20] MEDS ORDERED: atorvaSTATin 20 MG Tab PO SCH (09:00)
[2021-09-20] MEDS ORDERED: Aspirin 325 MG Tab.EC PO SCH (09:00)
[2021-09-20] MEDS: Lactobacillus Rhamnosus GG (Probiotic) Cap PO SCH ×2 (09:31→20:12)
[2021-09-20] MEDS: Apixaban 5 MG Tab PO SCH ×2 (09:31→20:12)
[2021-09-20] MEDS: metFORMIN 500 MG Tab PO SCH ×2 (09:32→18:10)
[2021-09-20] MEDS: BACITRACIN TOP SCH ×3 (09:32→20:12)
[2021-09-20] MEDS: Insulin Lispro 100 Unit/ML 3 ML KwikPen SUBCUT SCH ×4 (09:32→21:47)
[2021-09-20 12:04] LABS: HEMOGLOBIN A1C 7.1 % (4.5-6.2)
[2021-09-20] MEDS ORDERED: glipiZIDE 5 MG Tab PO SCH (16:30)
[2021-09-20] MEDS ORDERED: Doxycycline 100 MG Cap PO SCH (21:00)
[2021-09-21] MEDS: Morphine 2 MG/ML SYRINGE IVPUSH PRN (01:21)
[2021-09-21] MEDS ORDERED: Sodium Chloride 0.9% 500 ML IV ONE ×2 (01:56→03:49)
[2021-09-21] MEDS ORDERED: Acetaminophen 650 MG Supp RECTAL PRN (02:07)
[2021-09-21] MEDS: Sodium Chloride 0.9% 1,000 ML IV SCH ×2 (03:00→03:55)
[2021-09-21] MEDS ORDERED: Albuterol 0.083% 2.5 MG/3 ML Neb Soln NEB ONE (05:37)
[2021-09-21] MEDS: Sodium Chloride 0.9% 500 ML IV ONE ×2 (05:46→07:48)
[2021-09-21] MEDS ORDERED: Levofloxacin/Dextrose 5%-Water 750 MG in Premix Bag 1 BAG IV SCH (06:30)
[2021-09-21] MEDS ORDERED: Albuterol 0.083% 2.5 MG/3 ML Neb Soln NEB PRN (06:31)
[2021-09-21] MEDS ORDERED: methylPREDNISolone Sodium Succinate 125 MG/2 ML SDV IVPUSH ONE (06:33)
[2021-09-21] MEDS ORDERED: Sodium Chloride 0.9% 500 ML IV SCH (06:45)
[2021-09-21] MEDS ORDERED: Albuterol/Ipratropium 3.0-0.5 MG/3 ML Neb Soln NEB SCH (07:00)
[2021-09-21] MEDS ORDERED: Dextrose 5% in Water 1,000 ML IV SCH (07:15)
[2021-09-21] MEDS: Insulin Lispro 100 Unit/ML 3 ML KwikPen SUBCUT SCH (07:54)
[2021-09-21] MEDS ORDERED: Piperacillin/Tazobactam/Dext 3.375 GM in Premix Bag 1 BAG IV SCH (08:00)
[2021-09-21] MEDS ORDERED: Piperacillin/Tazobactam 3.375 GM in Sodium Chloride 0.9% 50 ML IV SCH (08:00)
[2021-09-21] MEDS: BACITRACIN TOP SCH (08:12)
[2021-09-21 08:43] VITALS: BP 80/56; PULSE 123
[2021-09-21] MEDS ORDERED: Aspirin 81 MG Tab.Chew PO SCH (09:00)
[2021-09-21] MEDS ORDERED: EPINEPHrine 1:10,000 1 MG/10 ML Syringe IV ONE ×2 (10:46→10:49)
[2021-09-21] MEDS ORDERED: methylPREDNISolone Sodium Succinate 40 MG/1 ML SDV IVPUSH SCH (15:00)
== END 2021-09-21 10:53 | disposition expired | DRG 175 ==
LOC: JP.ED 11:16 → JP.ICU 14:52
PROVIDERS: ADMIT Internal Medicine; ATTEND Internal Medicine
PROC: 5A12012 Performance of Cardiac Output, Single, Manual (ICD-10-PCS; principal; 2021-09-21)
DX: N39.0 Urinary tract infection, site not specified (principal); I26.99 Other pulmonary embolism without acute cor pulmonale; A41.9 Sepsis, unspecified organism; G93.40 Encephalopathy, unspecified; J69.0 Pneumonitis due to inhalation of food and vomit; J96.01 Acute respiratory failure with hypoxia; R65.20 Severe sepsis without septic shock; N17.9 Acute kidney failure, unspecified; E87.0 Hyperosmolality and hypernatremia; N30.00 Acute cystitis without hematuria; M62.82 Rhabdomyolysis; N13.8 Other obstructive and reflux uropathy; I25.10 Atherosclerotic heart disease of native coronary artery without angina pectoris; R09.2 Respiratory arrest; E86.0 Dehydration; E78.00 Pure hypercholesterolemia, unspecified; I10 Essential (primary) hypertension; E87.6 Hypokalemia; L89.899 Pressure ulcer of other site, unspecified stage; R73.9 Hyperglycemia, unspecified; D72.829 Elevated white blood cell count, unspecified; N40.1 Benign prostatic hyperplasia with lower urinary tract symptoms; Z20.822 Contact with and (suspected) exposure to COVID-19; Z79.82 Long term (current) use of aspirin; Z79.02 Long term (current) use of antithrombotics/antiplatelets; Z79.899 Other long term (current) drug therapy; I25.2 Old myocardial infarction; Z95.5 Presence of coronary angioplasty implant and graft; Z86.73 Personal history of transient ischemic attack (TIA), and cerebral infarction without residual deficits; Z86.19 Personal history of other infectious and parasitic diseases; Z98.49 Cataract extraction status, unspecified eye
CPT/HCPCS: 0241U; 36415; 51702; 70450; 70486; 71045; 71045-26; 71260; 74177; 80048; 80053; 80202; 81001; 82009; 82550; 82947; 83036; 83605; 83690; 83735; 84145; 84443; 84484; 85025; 85027; 85730; 86140; 87040; 87086; 87088; 87186; 92610-GN; 93005; 94640; 96361; 96365; 96367; 97110-GP; 97162-GP; 97530-GP; 99223; 99233; 99239; 99285; 99285-25; A9270-GY; J0696; J1644; J1650; J1815; J1940; J1956; J2001; J2270; J2543; J2930; J3370; J3480; J3490; J7030; J7040; J7050; J7060; J7120; J7620; Q9967